=== PATIENT | male | born 1985 | race Caucasian/White ===

== ENCOUNTER 2020-04-26 17:20 | Emergency (ER) | payer OTHER ==
[~2020-04-26] VITALS: Ht 175.3 cm; Wt 81.6 kg
--- NOTE | 2020-04-26 17:20 | NUR ---
PT BIB SELF C/O RIB PAIN FOR 2 DAYS. PT IS AAOX4, NOT IN RESPIRATORY DISTRESS, V/S STABLE, KEPT RESTED AND COMFORTABLE. WILL CONTINUE TO MONITOR.
--- NOTE | 2020-04-26 17:49 | NUR ---
PT SEEN AND EXAMINED BY SELAM RAM.
--- NOTE | 2020-04-26 18:03 | NUR ---
ER PHLEB AT BEDSIDE FOR BLOOD DRAW.
[2020-04-26 18:17] LABS: BASOPHILS % (AUTO) 0.9 % (0.0-2.0); EOSINOPHILS % (AUTO) 1.5 % (0.0-6.0); HEMATOCRIT 43 % (39-51); HEMOGLOBIN 14.3 g/dL (13.5-17.5); LYMPHOCYTES # (AUTO) 1.6 /CMM (0.8-4.8); LYMPHOCYTES % (AUTO) 33.4 % (20.0-44.0); MEAN CORPUSCULAR HGB CONC 34 g/dl (31.0-36.0); MEAN CORPUSCULAR VOLUME 90 fL (80-96); MONOCYTES # (AUTO) 0.6 /CMM (0.1-1.30); MONOCYTES % (AUTO) 12.7 % (2.0-12.0); NEUTROPHILS # (AUTO) 2.4 /CMM (1.8-8.9); NEUTROPHILS % (AUTO) 51.5 % (43.0-81.0); PLATELET COUNT (AUTO) 242 /CMM (150-450); RED BLOOD CELL COUNT(AUTO) 4.72 MIL/uL (4.5-6.0); WHITE BLOOD COUNT (AUTO) 4.7 K/uL (4.3-11.0)
[2020-04-26 18:30] LABS: CALCIUM, SERUM 8.9 mg/dL (8.5-10.1); CARBON DIOXIDE 27 mmol/L (21-32); CHLORIDE 103 mmol/L (98-107); CREATININE 0.9 mg/dL (0.6-1.3); GLUCOSE 93 mg/dL (74-106); POTASSIUM 3.7 mmol/L (3.5-5.1); SODIUM SERUM 141 mmol/L (136-145); UREA NITROGEN, BLOOD 9 mg/dL (7-18)
[2020-04-26 18:41] LABS: ALANINE AMINOTRANSFERASE 19 U/L (12-78); ALBUMIN 4.1 g/dL (3.4-5.0); ALKALINE PHOSPHATASE 60 U/L (46-116); ASPARTATE AMINOTRANSFERASE 18 U/L (15-37); BILIRUBIN,DIRECT 0.1 mg/dL (0.0-0.2); BILIRUBIN,TOTAL 0.4 mg/dL (0.2-1.0); TOTAL PROTEIN, SERUM 7.3 g/dL (6.4-8.2)
--- NOTE | 2020-04-26 18:55 | NUR ---
Patient discharged to home in stable condition. Written and verbal after care instructions given. Patient verbalizes understanding of instruction.
[2020-04-26 18:56] VITALS: BP 129/72
== END 2020-04-26 19:01 | disposition home or self-care (01) ==
LOC: ER 17:25
DX: R07.89 Other chest pain (principal); R10.13 Epigastric pain; J45.909 Unspecified asthma, uncomplicated; F12.90 Cannabis use, unspecified, uncomplicated
CPT/HCPCS: 36415; 71045-TC; 80048-TC; 80076-TC; 83690-TC; 84484-TC; 85025-TC

== ENCOUNTER 2020-10-03 14:50 | Emergency (ER) | payer OTHER ==
[~2020-10-03] VITALS: Ht 175.3 cm; Wt 81.6 kg
[2020-10-03 15:10] VITALS: BP 127/83
[2020-10-03] MEDS ORDERED: IBUPROFEN 600 MG TABLET PO ONE (15:30)
[2020-10-03] MEDS ORDERED: IBUPROFEN 600 MG TABLET ONE (15:35)
[2020-10-03] MEDS ORDERED: IBUP-1955 PO (16:04)
--- NOTE | 2020-10-03 16:29 | NUR ---
Patient discharged to home in stable condition. Written and verbal after care instructions given. Patient verbalizes understanding of instruction.
== END 2020-10-03 16:30 | disposition home or self-care (01) ==
LOC: ER 14:53
DX: M79.671 Pain in right foot (principal); J45.909 Unspecified asthma, uncomplicated; F10.10 Alcohol abuse, uncomplicated; F17.200 Nicotine dependence, unspecified, uncomplicated; Y90.9 Presence of alcohol in blood, level not specified; Z79.899 Other long term (current) drug therapy
CPT/HCPCS: 73630-TC

== ENCOUNTER 2020-11-10 17:20 | Emergency (ER) | payer OTHER ==
[~2020-11-10] VITALS: Ht 175.3 cm; Wt 81.6 kg
[~2020-11-10 17:20] MED LIST: IBUP-1955 PO
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
[2020-11-10] MEDS ORDERED: LIDOCAINE HCL/MPF 1% 30 ML VIAL IJ ONE (17:56)
[2020-11-10] MEDS ORDERED: LIDOCAINE 1%-EPI 1:100,000 50 ML VIAL IJ ONE (18:00)
[2020-11-10] MEDS ORDERED: IBUPROFEN 400 MG TABLET ONE (18:30)
[2020-11-10] MEDS ORDERED: TDAP [DIPH/PERTUSSIS/TET] 0.5 ML VIAL IM ONE (18:31)
[2020-11-10] MEDS: TDAP [DIPH/PERTUSSIS/TET] 0.5 ML VIAL IM ONE (18:36)
[2020-11-10] MEDS ORDERED: IBUP-1955 PO (18:36)
[2020-11-10] MEDS: IBUPROFEN 400 MG TABLET PO ONE (18:36)
[2020-11-10] MEDS: LIDOCAINE HCL/PF 1% 30 ML VIAL TP ONE (18:37)
--- NOTE | 2020-11-10 18:47 | NUR ---
Patient discharged to home in stable condition. Written and verbal after care instructions given. Patient verbalizes understanding of instruction. Pt ambulatory with a steady gait
[2020-11-10 18:48] VITALS: BP 112/72
== END 2020-11-10 18:48 | disposition home or self-care (01) ==
LOC: ER 17:23
DX: S01.81XA Laceration without foreign body of other part of head, initial encounter (principal); S60.222A Contusion of left hand, initial encounter; S40.812A Abrasion of left upper arm, initial encounter; S40.811A Abrasion of right upper arm, initial encounter; S80.211A Abrasion, right knee, initial encounter; J45.909 Unspecified asthma, uncomplicated; F10.10 Alcohol abuse, uncomplicated; F17.200 Nicotine dependence, unspecified, uncomplicated; Y90.9 Presence of alcohol in blood, level not specified; Z79.899 Other long term (current) drug therapy; V19.9XXA Pedal cyclist (driver) (passenger) injured in unspecified traffic accident, initial encounter; Y93.89 Activity, other specified; Y92.89 Other specified places as the place of occurrence of the external cause; Y99.8 Other external cause status
CPT/HCPCS: 12011; 70150; 73130; 90471; 90715; 99284; J3490 ×3

== ENCOUNTER 2021-05-20 14:35 | Emergency (ER) | payer OTHER ==
[~2021-05-20] VITALS: Ht 175.3 cm; Wt 81.6 kg
--- NOTE | 2021-05-20 15:06 | NUR ---
BIBSELF C/O SOB ON EXERTION AND TIGHTNESS ON BOTH UPPER AND LOWER EXTREMITIES STARTED 2 DAYS AGO, SAT AT 100% UPON ARRIVAL. RESPIRATION REGULAR AND UNLABORED. ATTACHED TO THE MONITOR. WILL CONTINUE TO MONITOR THE PATIENT.
[2021-05-20 15:54] LABS: BASOPHILS # (AUTO) 0.1 K/uL (0.0-0.2); BASOPHILS % (AUTO) 2.1 % (0.0-2.0); EOSINOPHILS % (AUTO) 2.1 % (0.0-6.0); HEMATOCRIT 42 % (39-51); HEMOGLOBIN 13.9 g/dL (13.5-17.5); LYMPHOCYTES % (AUTO) 27.4 % (20.0-44.0); MEAN CORPUSCULAR HGB CONC 33 g/dl (31.0-36.0); MEAN CORPUSCULAR VOLUME 90 fL (80-96); MONOCYTES # (AUTO) 0.5 K/uL (0.1-1.30); MONOCYTES % (AUTO) 14.3 % (2.0-12.0); NEUTROPHILS % (AUTO) 54.1 % (43.0-81.0); PLATELET COUNT (AUTO) 256 K/uL (150-450); RED BLOOD CELL COUNT(AUTO) 4.65 MIL/uL (4.5-6.0); WHITE BLOOD COUNT (AUTO) 3.7 K/uL (4.3-11.0)
[2021-05-20 16:00] LABS: CALCIUM, SERUM 8.1 mg/dL (8.5-10.1); CREATININE 0.9 mg/dL (0.6-1.3); POTASSIUM 4.4 mmol/L (3.5-5.1)
[2021-05-20 16:52] LABS: BAND % (MANUAL) 3 % (0.0-5.0); LYMPHOCYTES % (MANUAL) 26 % (16-48); MONOCYTES % (MANUAL) 10 % (0-11.0); NEUTROPHILS % (MANUAL) 61 (42-76)
--- NOTE | 2021-05-20 16:54 | NUR ---
Patient discharged to home in stable condition. Written and verbal after care instructions given. Patient verbalizes understanding of instruction.
[2021-05-20 16:55] VITALS: BP 116/67
== END 2021-05-20 16:55 | disposition home or self-care (01) ==
LOC: ER 14:41
DX: R06.02 Shortness of breath (principal); J45.909 Unspecified asthma, uncomplicated; F17.200 Nicotine dependence, unspecified, uncomplicated
CPT/HCPCS: 36415; 71045-TC; 80048-TC; 85025-TC

== ENCOUNTER 2021-05-29 18:25 | Emergency (ER) | payer OTHER ==
[~2021-05-29] VITALS: Ht 175.3 cm; Wt 81.6 kg
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
--- NOTE | 2021-05-29 23:25 | NUR ---
AT PT'S BEDSIDE
--- NOTE | 2021-05-29 23:42 | NUR ---
PT TAKEN TO RADIOLOGY
--- NOTE | 2021-05-29 23:50 | NUR ---
PT RETURNED ER BED [address]
[2021-05-30] MEDS ORDERED: ONDANSETRON HCL/PF 4 MG/2 ML VIAL IVP ONE
[2021-05-30] MEDS ORDERED: LIDOCAINE 5% (PATCH) 1 EA PATCH TP SCH
[2021-05-30] MEDS ORDERED: KETOROLAC TROMETHAMINE INJ 30 MG/ML VIAL IV ONE
[2021-05-30] MEDS ORDERED: IV NS 0.9% 1,000 ML BAG IV ONE
[2021-05-30] MEDS ORDERED: MORPHINE SULFATE INJ 2 MG/ML DISP.SYRIN IV ONE
[2021-05-30] MEDS ORDERED: DIAZEPAM 5 MG/ML 2 ML DISP.SYRIN IV ONE
[2021-05-30] MEDS ORDERED: KETOROLAC TROMETHAMINE 15 MG/ML VIAL ONE (00:03)
[2021-05-30] MEDS ORDERED: ONDANSETRON HCL/PF 4 MG/2 ML VIAL ONE (00:04)
[2021-05-30] MEDS ORDERED: DIAZEPAM 5 MG/ML 2 ML DISP.SYRIN ONE (00:04)
[2021-05-30] MEDS ORDERED: MORPHINE SULFATE INJ 4 MG/ML DISP.SYRIN ONE (00:04)
[2021-05-30] MEDS ORDERED: LIDOCAINE 5% (PATCH) 1 EA PATCH TP ONE (00:11)
--- NOTE | 2021-05-30 00:25 | NUR ---
LIDOCAINE PATCH NON ADMIN TAKEN FROM FLOOR, NONE AVAIL IN ED
--- NOTE | 2021-05-30 00:31 | NUR ---
R COURTNEY #20G S/L; PATENT AND INTACT
[2021-05-30] MEDS ORDERED: LIDO700A30 TP (01:35)
[2021-05-30] MEDS ORDERED: CYCL5TAB PO (01:38)
--- NOTE | 2021-05-30 01:50 | NUR ---
pt is medically stable for d/c per MD. IV removed. Catheter intact and site benign. Pressure and 4x4 applied to site. No bleeding noted.Rx and Patient discharged to home in stable condition. Written and verbal after care instructions given. Patient verbalizes understanding of instruction.
[2021-05-30 01:51] VITALS: BP 118/72
== END 2021-05-30 01:51 | disposition home or self-care (01) ==
LOC: ER 18:27
DX: M48.061 Spinal stenosis, lumbar region without neurogenic claudication (principal); J45.909 Unspecified asthma, uncomplicated; F17.200 Nicotine dependence, unspecified, uncomplicated; X50.0XXA Overexertion from strenuous movement or load, initial encounter; Y93.89 Activity, other specified; Y92.89 Other specified places as the place of occurrence of the external cause; Y99.8 Other external cause status
CPT/HCPCS: 72131; 96361; 96374; 96375; 99284; J1885; J2270; J2405; J3360; J7030

== ENCOUNTER 2021-07-02 15:09 | Emergency (ER) | payer OTHER ==
[~2021-07-02] VITALS: Ht 175.3 cm; Wt 81.6 kg
[~2021-07-02 15:09] MED LIST changes: +CYCL5TAB PO; +LIDO700A30 TP
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
[2021-07-02] MEDS ORDERED: CARI350T PO (17:10)
--- NOTE | 2021-07-02 17:28 | NUR ---
Patient discharged to home in stable condition. RX Written and verbal after care instructions given. Patient verbalizes understanding of instruction. PT ambulatory with a steady gait.
[2021-07-02 17:29] VITALS: BP 120/73
== END 2021-07-02 17:30 | disposition home or self-care (01) ==
LOC: ER 15:11
DX: S16.1XXA Strain of muscle, fascia and tendon at neck level, initial encounter (principal); S83.91XA Sprain of unspecified site of right knee, initial encounter; V49.49XA Driver injured in collision with other motor vehicles in traffic accident, initial encounter; Y93.89 Activity, other specified; Y92.410 Unspecified street and highway as the place of occurrence of the external cause; Y99.8 Other external cause status

== ENCOUNTER 2022-09-03 13:30 | Emergency (ER) | payer OTHER ==
[~2022-09-03] VITALS: Ht 175.3 cm; Wt 86.2 kg
[~2022-09-03 13:30] MED LIST changes: +CARI350T PO
[2022-09-03 13:55] VITALS: BP 114/79
[2022-09-03] MEDS ORDERED: MORPHINE SULFATE INJ 2 MG/ML DISP.SYRIN IM ONE (14:30)
[2022-09-03] MEDS ORDERED: KETOROLAC TROMETHAMINE INJ 60 MG/2 ML VIAL IM ONE (14:30)
[2022-09-03] MEDS ORDERED: KETOROLAC TROMETHAMINE INJ 30 MG/ML VIAL ONE (14:55)
[2022-09-03] MEDS ORDERED: MORPHINE SULFATE INJ 4 MG/ML DISP.SYRIN ONE (14:55)
[2022-09-03] MEDS ORDERED: IBUP-1955 PO (16:11)
[2022-09-03] MEDS ORDERED: CYCL10TA9 PO (16:11)
== END 2022-09-03 16:19 | disposition home or self-care (01) ==
LOC: ER 13:36
DX: M54.12 Radiculopathy, cervical region (principal); M62.838 Other muscle spasm; J45.909 Unspecified asthma, uncomplicated; F17.200 Nicotine dependence, unspecified, uncomplicated; Z60.2 Problems related to living alone; Z79.899 Other long term (current) drug therapy
CPT/HCPCS: 99284; 96372 ×2; 72050; 72074; J2270; J1885